=== PATIENT | female | born 1970 | race Caucasian/White ===

== ENCOUNTER 2016-11-25 21:14 | Emergency (ER) | payer MEDICAID, OTHER ==
[~2016-11-25] VITALS: Ht 170.2 cm; Wt 82.9 kg
[2016-11-25] MEDS ORDERED: ALPR0.25 (21:24)
[2016-11-25] MEDS ORDERED: PANT40TA2 (21:24)
[2016-11-25] MEDS ORDERED: DULO1CAP3 (21:24)
[2016-11-25] MEDS ORDERED: LORA10TA2 (21:24)
[2016-11-25] MEDS ORDERED: HYDR12.55 (21:24)
[2016-11-25] MEDS ORDERED: PYRI1TAB5 PO (22:18)
[2016-11-25] MEDS ORDERED: CIPR-249 PO (22:18)
[2016-11-25 22:26] VITALS: BP 145/75
[2016-11-25] MEDS ORDERED: CIPROFLOXACIN 500 MG TAB PO ONE (22:30)
[2016-11-25] MEDS ORDERED: PHENAZOPYRIDINE 100 MG TAB PO ONE (22:30)
== END 2016-11-25 22:28 | disposition home or self-care (01) ==
LOC: M ED 21:14
DX: N30.90 Cystitis, unspecified without hematuria (principal); I10 Essential (primary) hypertension; F17.210 Nicotine dependence, cigarettes, uncomplicated; Z79.899 Other long term (current) drug therapy

== ENCOUNTER 2016-12-30 10:46 | Emergency (ER) | payer OTHER ==
[~2016-12-30] VITALS: Ht 170.2 cm; Wt 83.2 kg
[~2016-12-30 10:46] MED LIST: ALPR0.25; CIPR-249 PO; DULO1CAP3; HYDR12.55; LORA10TA2; PANT40TA2; PYRI1TAB5 PO
[2016-12-30 10:47] VITALS: BP 110/78
[2016-12-30] MEDS ORDERED: HYDR12.55 PO (10:54)
[2016-12-30] MEDS ORDERED: PRED20TA PO (11:22)
[2016-12-30] MEDS ORDERED: NAPHSOL OD (11:22)
== END 2016-12-30 11:34 | disposition home or self-care (01) ==
LOC: M ED 10:46
DX: T63.441A Toxic effect of venom of bees, accidental (unintentional), initial encounter (principal); I10 Essential (primary) hypertension; K21.9 Gastro-esophageal reflux disease without esophagitis; F33.9 Major depressive disorder, recurrent, unspecified; Y92.9 Unspecified place or not applicable; Y99.9 Unspecified external cause status; Y93.9 Activity, unspecified; Z79.899 Other long term (current) drug therapy

== ENCOUNTER 2017-03-27 12:32 | Emergency (ER) | payer MEDICAID, OTHER, SELFPAY ==
[~2017-03-27] VITALS: Ht 170.2 cm; Wt 81.8 kg
[~2017-03-27 12:32] MED LIST changes: +HYDR12.55 PO; +NAPHSOL OD; +PRED20TA PO
[2017-03-27] MEDS ORDERED: LORA10CA PO (13:03)
[2017-03-27] MEDS ORDERED: HYDR12.55 PO (13:03)
[2017-03-27] MEDS ORDERED: DULO1CAP3 PO (13:03)
[2017-03-27] MEDS ORDERED: ALPR0.25 PO (13:03)
[2017-03-27 15:34] VITALS: BP 131/75
== END 2017-03-27 15:34 | disposition home or self-care (01) ==
LOC: M ED 12:32
DX: F32.9 Major depressive disorder, single episode, unspecified (principal); Z87.891 Personal history of nicotine dependence; Z76.0 Encounter for issue of repeat prescription

== ENCOUNTER 2017-09-30 12:22 | Emergency (ER) | payer OTHER ==
[2017-09-30] MEDS: NAPROXEN 250 MG TAB PO (13:49)
[2017-09-30] MEDS: ADACEL/BOOSTRIX VACCINE (DIPHTH/PERTUSS/ACELL/TETANUS)0.5ML SYR (90715) IM (13:50)
== END 2017-09-30 14:25 | disposition home or self-care (01) ==
LOC: M ED 12:22
DX: S61.250A Open bite of right index finger without damage to nail, initial encounter (principal); W54.0XXA Bitten by dog, initial encounter; Y92.410 Unspecified street and highway as the place of occurrence of the external cause; K21.9 Gastro-esophageal reflux disease without esophagitis; E03.9 Hypothyroidism, unspecified; F41.9 Anxiety disorder, unspecified; Z79.899 Other long term (current) drug therapy; Z79.890 Hormone replacement therapy; Z87.891 Personal history of nicotine dependence
CPT/HCPCS: 90715

== ENCOUNTER 2017-10-15 21:21 | Emergency (ER) | payer OTHER ==
[2017-10-15] MEDS: NORCO 5/325MG TABLET (BULK FOR ED) PO (23:01)
== END 2017-10-15 23:19 | disposition home or self-care (01) ==
LOC: M ED 21:21
DX: S93.402A Sprain of unspecified ligament of left ankle, initial encounter (principal); S83.92XA Sprain of unspecified site of left knee, initial encounter; W55.89XA Other contact with other mammals, initial encounter; Y92.89 Other specified places as the place of occurrence of the external cause; I10 Essential (primary) hypertension; K21.9 Gastro-esophageal reflux disease without esophagitis; E03.9 Hypothyroidism, unspecified; D58.0 Hereditary spherocytosis; Z79.899 Other long term (current) drug therapy; Z79.890 Hormone replacement therapy; F17.210 Nicotine dependence, cigarettes, uncomplicated
CPT/HCPCS: 73564

== ENCOUNTER 2018-03-27 15:26 | Emergency (ER) | payer MEDICAID, OTHER ==
[2018-03-27] MEDS: AZITHROMYCIN 250 MG TAB PO (16:00)
== END 2018-03-27 17:23 | disposition home or self-care (01) ==
LOC: M ED 15:26
DX: J01.90 Acute sinusitis, unspecified (principal); Z90.49 Acquired absence of other specified parts of digestive tract; R09.89 Other specified symptoms and signs involving the circulatory and respiratory systems; F17.290 Nicotine dependence, other tobacco product, uncomplicated; I10 Essential (primary) hypertension; E11.9 Type 2 diabetes mellitus without complications; E03.9 Hypothyroidism, unspecified; D58.2 Other hemoglobinopathies; K21.9 Gastro-esophageal reflux disease without esophagitis; Z87.09 Personal history of other diseases of the respiratory system; Z79.890 Hormone replacement therapy; Z79.899 Other long term (current) drug therapy
CPT/HCPCS: 71046

== ENCOUNTER → 2022-10-13 | Outpatient (REF) | payer OTHER ==
[~2022-10-13] MED LIST changes: -ALPR0.25; +ALPR0.25 PO; +AUGM875T28 PO; +AZIT-12 PO; -DULO1CAP3; +DULO1CAP6; +DULO1CAP6 PO; +IBUP-1022 PO; +LEVO88TA3 PO; +LORA-243; +LORA10CA PO; -LORA10TA2; -PANT40TA2; +PANT40TA29; +VITA50005 PO
[2022-10-13 16:47] LABS: BASO # 0.1 10^3/uL (0.0-0.2); EOS # 0.4 10^3/uL (0.0-0.5); EOS % 3.4 % (0.0-3.0); HEMATOCRIT 42.3 % (36.0-47.0); HEMOGLOBIN 14.1 g/dl (12.0-15.5); LYMPH % 49.5 % (24.0-44.0); MEAN CORPUSCULAR HGB CONC 33.3 g/dl (32.0-36.5); MONO # 1.1 10^3/uL (0.0-0.8); MONO % 11.1 % (2.0-8.0); NEUTROPHILS # 3.5 10^3/uL (1.5-8.5); NEUTROPHILS % 34.7 % (36.0-66.0); PLATELET COUNT, AUTOMATED 408 10^3/uL (150-450); RED BLOOD COUNT 4.55 10^6/uL (4.00-5.40); WHITE BLOOD COUNT 10.2 10^3/uL (4.0-10.0)
[2022-10-13 17:13] LABS: THYROID STIMULATING HORMONE 6.938 uIU/ML (0.55-4.78)
[2022-10-13 17:14] LABS: ALBUMIN 3.7 G/DL (3.2-5.2); ALKALINE PHOSPHATASE 92 U/L (46-116); ALT/SGPT 11 U/L (7.0-40); AST/SGOT 19 U/L (<34); BILIRUBIN,TOTAL 0.2 MG/DL (0.3-1.2); BLOOD UREA NITROGEN 10 MG/DL (9-23); CALCIUM LEVEL 10.2 MG/DL (8.5-10.1); CARBON DIOXIDE LEVEL 25 MMOL/L (20-31); CHLORIDE LEVEL 105 MMOL/L (98-107); CHOLESTEROL LEVEL 242 MG/DL (<200); CHOLESTEROL RISK RATIO 5.26 (<5); CREATININE FOR GFR 0.85 MG/DL (0.55-1.30); GLOMERULAR FILTRATION RATE > 60.0 (>58); GLUCOSE, FASTING 86 MG/DL (60-100); POTASSIUM SERUM 4.7 MMOL/L (3.5-5.1); SODIUM LEVEL 139 MMOL/L (136-145); TOTAL 25(OH) VITAMIN D 23.3 NG/ML (20.0-100.0); TOTAL PROTEIN 6.9 G/DL (5.7-8.2); TRIGLYCERIDES LEVEL 340 MG/DL (<150)
[2022-10-13 17:56] LABS: HEMOGLOBIN A1c 5.9 % (4.0-6.0)
== END ==
LOC: M LAB REF 16:22
PROVIDERS: ATTEND Nurse Practitioner Family
DX: Z13.228 Encounter for screening for other metabolic disorders (principal)

== ENCOUNTER → 2023-03-25 | Outpatient (REF) | payer OTHER ==
[2023-03-25 17:11] LABS: BASO # 0.1 10^3/uL (0.0-0.2); BASO % 1.1 % (0.0-1.0); EOS # 0.2 10^3/uL (0.0-0.5); EOS % 2.5 % (0.0-3.0); HEMATOCRIT 41.5 % (36.0-47.0); HEMOGLOBIN 13.5 g/dl (12.0-15.5); LYMPH # 4.3 10^3/uL (1.5-5.0); LYMPH % 45.1 % (24.0-44.0); MEAN CORPUSCULAR HEMOGLOBIN 30.3 pg (27.0-33.0); MEAN CORPUSCULAR HGB CONC 32.5 g/dl (32.0-36.5); MEAN CORPUSCULAR VOLUME 93.3 fl (80.0-96.0); MONO % 10.8 % (2.0-8.0); NEUTROPHILS # 3.8 10^3/uL (1.5-8.5); NEUTROPHILS % 40.1 % (36.0-66.0); PLATELET COUNT, AUTOMATED 433 10^3/uL (150-450); RED BLOOD COUNT 4.45 10^6/uL (4.00-5.40); WHITE BLOOD COUNT 9.5 10^3/uL (4.0-10.0)
[2023-03-25 17:31] LABS: ALBUMIN 3.9 G/DL (3.2-5.2); ALKALINE PHOSPHATASE 98 U/L (46-116); ALT/SGPT 27 U/L (7.0-40); AST/SGOT 20 U/L (<34); BILIRUBIN,TOTAL 0.4 MG/DL (0.3-1.2); BLOOD UREA NITROGEN 14 MG/DL (9-23); CALCIUM LEVEL 9.7 MG/DL (8.5-10.1); CARBON DIOXIDE LEVEL 24 MMOL/L (20-31); CHLORIDE LEVEL 105 MMOL/L (98-107); CHOLESTEROL LEVEL 179 MG/DL (<200); CHOLESTEROL RISK RATIO 3.71 (<5); CREATININE FOR GFR 0.85 MG/DL (0.55-1.30); GLOMERULAR FILTRATION RATE > 60.0 (>51); GLUCOSE, FASTING 109 MG/DL (60-100); HDL CHOLESTEROL 48.2 MG/DL (>40); NON-HDL-C 130.8 MG/DL; POTASSIUM SERUM 4.1 MMOL/L (3.5-5.1); SODIUM LEVEL 140 MMOL/L (136-145); THYROID STIMULATING HORMONE 0.411 uIU/ML (0.55-4.78); TOTAL PROTEIN 7.3 G/DL (5.7-8.2); TRIGLYCERIDES LEVEL 119 MG/DL (<150)
== END ==
LOC: M LAB REF 16:24
PROVIDERS: ATTEND Nurse Practitioner Family
DX: E03.9 Hypothyroidism, unspecified (principal); Z13.228 Encounter for screening for other metabolic disorders; E78.5 Hyperlipidemia, unspecified

== ENCOUNTER → 2023-04-06 | Outpatient (CLI) | payer OTHER | LOC: M RAD 13:56 | PROVIDERS: ATTEND Nurse Practitioner Family | DX: E89.0 Postprocedural hypothyroidism (principal) ==